=== PATIENT | female | born 1945 | race Caucasian/White ===

== ENCOUNTER 2019-02-18 08:46 | Emergency (ER) | payer MEDICARE ==
[2019-02-18 09:10] VITALS: BP 125/71
--- NOTE | 2019-02-18 09:21 | UC ---
Dizzy HPI HPI Summary: Patient is a 73 year old female , who present today with dizziness this morning during 33 mile bike ride. She is an avid cyclist and does 30 to 50 miles rides. After about 5 miles into it , started having dizziness, climbing uphill. Associated shortness of breath, no chest pain. She also had nausea and took zofran at 8 am . She is concerned about cardura making her BP low. In Urgent care, she is feeling much better, her nausea and dizziness is improved , able to drink electrolyte water without any problem. She is from [place] and visiting here. - History Of Current Complaint Chief Complaint: UCGeneralIllness Stated Complaint: DIZZINESS,SOB Time Seen by Provider: 02/18/19 08:54 Pain Intensity: 0 - Allergies/Home Medications Allergies/Adverse Reactions: Allergies Allergy/AdvReac Type Severity Reaction Status Date / Time promethazine Allergy "Makes me Verified 02/18/19 09:04 jerk" meperidine [From Demerol] AdvReac Severe Nausea And Verified 02/18/19 09:04 Vomiting Home Medications: Home Medications Atorvastatin* [Lipitor*] 10 mg PO DAILY 02/18/19 [History Confirmed 02/18/19] Calcium Phosphate Trib/Vit D3 [Flora Calcium + Vi... 250-135-200 mg-mg-Unit] 2 chw PO DAILY 02/18/19 [History Confirmed 02/18/19] Doxazosin Mesylate [Cardura] 4 mg PO BEDTIME 02/18/19 [History Confirmed ] LORazepam TAB(*) [Ativan 1 MG TAB (*)] 0.5 - 1 mg PO BEDTIME PRN 02/18/19 [ History Confirmed 02/18/19] Lisinopril/HCTZ 10.5(NF) [Zestoretic 10/.5(NF)] 1 tab PO QAM 02/18/19 [ History Confirmed 02/18/19] Naproxen Sodium [Aleve] 220 - 440 mg PO Q12H PRN 02/18/19 [History Confirmed ] Ondansetron ODT TAB* [Zofran 4 MG Odt TAB*] 4 mg PO Q6H PRN 02/18/19 [History Confirmed 02/18/19] Ranitidine TAB (NF) [Zantac TAB (NF)] 150 mg PO BID 02/18/19 [History Confirmed 02/18/19] PMH/Surg Hx/FS Hx/Imm Hx - Additional Past Medical History Additional PMH: Past medical History:HTN, HLD, Scoliosis, GERD, Insomnia, Past surgical history: Spinal fusions T10 to sacrum Family history: non-contributory Social history: no alcohol, non smoker, no substance abuse. Previously Healthy: Yes - Surgical History Surgical History: Yes Surgery Procedure, Year, and Place: Several Spinal Fusions [id number] - Family History Known Family History: Positive: Non-Contributory - Social History Alcohol Use: None Substance Use Type: None Smoking Status (MU): Never Smoked Tobacco Length of Time of Smoking/Using Tobacco: Off and On Some Day Use When Did the Patient Quit Smoking/Using Tobacco: ~1998 Review of Systems All Other Systems Reviewed And Are Negative: Yes Constitutional: Positive: Other - dizzy Skin: Positive: Negative Eyes: Positive: Negative ENT: Positive: Negative Respiratory: Positive: Shortness Of Breath Cardiovascular: Positive: Negative. Negative: Chest Pain Gastrointestinal: Positive: Nausea Genitourinary: Positive: Negative Motor: Positive: Negative Neurovascular: Positive: Negative Musculoskeletal: Positive: Negative Neurological: Positive: Negative Psychological: Positive: Negative Is Patient Immunocompromised?: No Physical Exam - Summary Physical Exam Summary: Physical Exam: Vital signs reviewed Const: Appears well. No signs of apparent distress present. Alert and oriented x 3. Musculo: Walks with a normal gait. Head/Face: Atraumatic, normocephalic on inspection. Eyes: EOMI and PERRLA in both eyes. ENT: Hearing normal, Respiratory: Respirations are unlabored. Lungs clear to auscultation bilaterally, no wheezing , rhonchi or rales noted . CVS: Regular rate and Rhythm, S1S2 normal , no murmurs identified. Extremities: Peripheral circulation is grossly normal. Pulses 2+ Abdomen : Soft non tender , nondistended , Bowel sounds present . No guarding , rebound tenderness or rigidity noted. Skin: No lesions or rash located on the upper extremities or on the lower extremities. Neuro: Cranial nerves II to XII intact, motor and sensory intact. DTR Intact bilaterally. Mood is normal. Affect is normal. Triage Information Reviewed: Yes Vital Signs: Initial Vital Signs Temp 97.4 F 02/18/19 08:57 Pulse 84 02/18/19 08:57 Resp 16 02/18/19 08:57 BP 125/71 02/18/19 08:57 Pulse Ox 97 02/18/19 08:57 Vital Signs Reviewed: Yes Diagnostics - EKG Cardiac Rate: NL Cardiac Rhythm: Sinus: Normal ST Segment: Normal - NSR, TWI on V1, Normal DC and QRS, Left axis deviation, No ST elevation. Dizzy Course/Dx - Course Course Of Treatment: During the visit today, we discussed the findings , likely dehydration due to hot and humid weather, possibly her antihypertensive meds contributing. SHe was asymptomatic here, tolerating po well, EKG was normal limits. Advised maintain hydration , hold off bike today and discuss meds with her PMD in [place] . Patient expressed understanding . - Differential Dx/Diagnosis Provider Diagnosis: Dehydration after exertion Discharge - Sign-Out/Discharge Documenting (check all that apply): Patient Departure All imaging exams completed and their final reports reviewed: No Studies - Discharge Plan Condition: Stable Disposition: HOME Patient Education Materials: Dehydration (ED) Referrals: No Primary Care Phys,NOPCP [Primary Care Provider] - Additional Instructions: Maintain hydration. Hold off biking today . Follow up with your primary care doctor in regards to your blood pressure medications. Return to Urgent care / ER if symptoms get worse. - Billing Disposition and Condition Condition: STABLE Disposition: Home
== END 2019-02-18 09:43 | disposition home or self-care (01) ==
LOC: UCCORT 08:46
DX: E86.0 Dehydration (principal); I10 Essential (primary) hypertension; E78.5 Hyperlipidemia, unspecified; G47.00 Insomnia, unspecified; Z87.891 Personal history of nicotine dependence
CPT/HCPCS: 93005; 99201; G0463